=== PATIENT | female | born 1985 | race Caucasian/White ===

== ENCOUNTER 2020-12-19 19:36 | Emergency (ER) | payer OTHER ==
[2020-12-19 19:43] VITALS: TEMP 98.7; BMI 25.7
[2020-12-19] MEDS ORDERED: IBUPROFEN 600 MG TABLET (FP) PO ONE ×2 (19:53→20:03)
[2020-12-19 20:55] VITALS: BP 120/77; PULSE 107
== END 2020-12-19 21:01 | disposition home or self-care (01) ==
LOC: FER 19:36
DX: R07.81 Pleurodynia (principal); V18.0XXA Pedal cycle driver injured in noncollision transport accident in nontraffic accident, initial encounter
CPT/HCPCS: 71046-TC-FY; 99283-25